=== PATIENT | female | born 1995 | race African-American/Black ===

== ENCOUNTER 2018-12-19 09:59 | Outpatient (CLI) | payer OTHER ==
[~2018-12-19] VITALS: Ht 162.6 cm; Wt 77.7 kg
--- NOTE | 2018-12-19 10:10 | NUR ---
Pt here from ER with c/o contractions every 10 minutes and waking up this AM with nausea, vomiting and diarrhea. Pt denies any other symptoms. 34.5 weeks gestation, G1. SVE: tight 1cm/70/high. Pt denies any vaginal bleeding or leaking of fluid. Assessment complete. Pt with sickle cell anemia, thalassemia, and PUPPs. Physician has prescribed topical cream and vistaril but pt hasn't started taken yet. Pt breathing through contractions every 2-3minutes. Inital maternal pulse 115bpm and temp is 99.2 orally. FHR 150-160bpm 1036:Dr Theodore called to updated. On his way now, will notify when he gets here. Order to start IV and LR bolus at this time.
[2018-12-19 10:20] VITALS: BP 109/60; PULSE 115; TEMP 99.2
[2018-12-19] MEDS ORDERED: NATURAL IRON65 MG PO (10:26)
[2018-12-19] MEDS ORDERED: PRENATAL PO (10:26)
[2018-12-19 10:45] VITALS: BP 98/56; PULSE 105
--- NOTE | 2018-12-19 11:05 | NUR ---
Dr Theodore updated on pt status. Order for Zofran 4mg IV now and may run LR at 125ml/hr. Pt wretching/dry heaving at this time, no emesis noted. Family at bedside, will continue to monitor.
[2018-12-19 11:15] VITALS: BP 97/48; PULSE 105
[2018-12-19 11:45] VITALS: BP 101/60; PULSE 96
--- NOTE | 2018-12-19 11:51 | NUR ---
Pt up to bathroom, voids. Denies any nausea at this time. 1205:Terb 0.25mg given SQ to left upper arm per physician's order. 1210:Dr Theodore here and at bedside, plan of care reviewed. SVE: 1/high. Orders to continue to monitor at this time.
[2018-12-19 12:45] VITALS: BP 107/58; PULSE 108
[2018-12-19 13:45] VITALS: BP 91/55; PULSE 110
--- NOTE | 2018-12-19 13:45 | NUR ---
Pt states feeling much better, states contractions have decreased. Contractions eveyr 15-20 minutes, palpate mild. Dr Theodore here, reviews FHR monitor strip. Orders to DC home. IV removed. DC instructions given, pt verbalizes understanding. Will call [facility] Friday to scheduled appointment. 1415:Pt to personal vehicle.
== END 2018-12-19 14:15 | disposition home or self-care (01) ==
LOC: LDRO 09:59 → LDR 10:00 → LDRO 14:15
DX: O62.9 Abnormality of forces of labor, unspecified (principal); Z3A.34 34 weeks gestation of pregnancy
CPT/HCPCS: OP; J2405; J3105; J7120

== ENCOUNTER 2019-01-10 10:32 | Outpatient (CLI) | payer OTHER ==
[~2019-01-10] VITALS: Ht 162.6 cm; Wt 79.5 kg
[~2019-01-10 10:32] MED LIST: NATURAL IRON65 MG PO; PRENATAL PO
--- NOTE | 2019-01-10 10:40 | NUR ---
Patient arrives ambulatory with spouse with complaints of spotting and cramping. Patient states "I don't notice anything when I wipe recently, but just wanted to get checked out". Patient reports normal movement and denies ROM. Changes into gown, EFM explained and placed. VSS. 1050- SVE by Nik Roman RN /3 and posterior. No bleeding noted on exam glove. Assessment completed and patient updated on plan of care. 1055- Dr. Theodore notified by Nik Roman RN. Reviewed patient history and complaint. Reviewed FHR strip and ctx pattern. SVE. Orders to monitor over one hour and recheck. DC home if unchanged and reactive FHR strip.
[2019-01-10 10:48] VITALS: BP 121/61; PULSE 81; TEMP 98.3
[2019-01-10 11:00] VITALS: BP 121/61; PULSE 81; TEMP 98.3
[2019-01-10 11:51] VITALS: BP 99/75; PULSE 75
--- NOTE | 2019-01-10 11:58 | NUR ---
Patient given discharge instructions. Reviewed labor precautions and kick counts. Denies questions. Leaves ambulatory.
== END 2019-01-10 12:00 | disposition home or self-care (01) ==
LOC: LDRO 10:32
DX: O26.853 Spotting complicating pregnancy, third trimester (principal); Z3A.37 37 weeks gestation of pregnancy

== ENCOUNTER → 2020-01-03 | Outpatient (CLI) | payer OTHER ==
[~2020-01-03] MED LIST changes: +IBU600 MG PO; +PERCOCET 325 MG1 TA2 PO
== END ==
LOC: ZCOL.LAB 15:01
DX: R19.7 Diarrhea, unspecified (principal); Z20.828 Contact with and (suspected) exposure to other viral communicable diseases

== ENCOUNTER 2020-07-04 20:31 | Outpatient (CLI) | payer MEDICAID ==
[~2020-07-04] VITALS: Ht 165.1 cm; Wt 80.0 kg
--- NOTE | 2020-07-04 20:35 | NUR ---
G2L1. 37-6. Ambulatory to LDR 4 with spouse. Clean gown on. EFM and TOCO explained and applied. Pt state she has been having contractions the past couple of hours that were every 3 mins apart but pt states they feel like they have let up some. Denies leaking of fluids or vaginal bleeding. Pt reports movement when she was down in the care when they pulled up to hospital. VS and assessment completed. SVE /-3. Plan of care explained to pt and who verbalize their understanding. Call light within reach.
[2020-07-04 21:00] VITALS: BP 120/59; PULSE 83; TEMP 98.5
--- NOTE | 2020-07-04 22:06 | NUR ---
SVE unchanged. called and updated on pts status. See physican notification. 2215: Discharge instructions given to pt. Pt verbalizes her understanding and denies any questions at this time. Pt ambulatory off unit with spouse.
== END 2020-07-04 22:15 | disposition home or self-care (01) ==
LOC: LDR 20:31 → LDRO 20:31 → LDR 21:29 → LDRO 22:15
DX: O62.9 Abnormality of forces of labor, unspecified (principal); Z3A.37 37 weeks gestation of pregnancy
CPT/HCPCS: OP

== ENCOUNTER → 2020-07-07 | Outpatient (CLI) | payer MEDICAID | LOC: ZCOL.LAB 08:00 | DX: Z20.828 Contact with and (suspected) exposure to other viral communicable diseases (principal) ==

== ENCOUNTER 2020-07-12 07:03 | Inpatient (IN) | payer MEDICAID ==
[~2020-07-12] VITALS: Ht 165.1 cm; Wt 80.9 kg
[2020-07-12] VITALS (28 sets, daily range): BP systolic 89–152; BP diastolic 51–89; PULSE 73–104; TEMP 98.2–98.4
--- NOTE | 2020-07-12 07:03 | NUR ---
0703-G2L1 [address] Barrios ambulatory to LR 5 for scheduled induction of labor. Assisted into gown and onto EFM. VSS, See flow record. FHR reactive. IV to left forearm, blood collected and sent to lab per protocol. IVF infusing see EMAR. Patient reports "feeling faint" following IV start, cool washcloth to forehead and fan turned on. Patient reports "I feel much better." Consents reviewed and sigend. Assessment complete. 0815-Dr. Barrios to unit. Reviews FHR monitor. In to see patient and discuss plan of care. 0818-SVE by -/-2, AROM clear fluid. Chelsy care provided. Updated on plan of care.
[2020-07-12 08:05] LABS: BASO % 0.3 % (0.0-2.0); EOS % 0.3 % (0-4.0); GRAN # 7.7 (1.4-6.5); GRAN % 69.8 % (42.2-75.2); LYMPH # 2.4 (1.2-3.4); LYMPH % 22.1 % (20.0-51.0); MEAN CELL VOLUME 75 fl (80.0-100.0); MEAN CORPUSCULAR HGB CONC 34 g/dl (33.0-37.0); MEAN PLATELET VOLUME 12.4 fl (7.4-10.4); MONO # 0.7 (0.1-0.6); MONO % 6.6 % (1.7-9.3); PLATELET COUNT 206 K/mm3 (130-400); RED BLOOD COUNT 3.82 M/mm3 (4.10-5.30); REDCELL DISTRIBUTION WIDTH-CV 16.4 % (11.5-14.5)
[2020-07-12 08:07] LABS: HEMOGLOBIN 9.7 g/dl (12.5-16.0); MEAN CORPUSCULAR HEMOGLOBIN 25 pg (27.0-31.0)
[2020-07-12 08:08] LABS: HEMATOCRIT 28.6 % (37.0-47.0)
--- NOTE | 2020-07-12 09:00 | NUR ---
0900-PAUL Hampton on unit, Patient sitting upright for epidural placement. Difficulty maintaining continuous tracing with EFM due to positioning. IVF bolus infusing. 09-Test dose administered by PAUL Hampton. Patient tolerated procedure well. VSS, Updated on plan of care and safety.
--- NOTE | 2020-07-12 09:42 | NUR ---
0942-Maternal BP 89/51, asymptomatic of low BP. 10mg IV ephedrine given per protocol. PAUL Hampton at bedside encouarging patient to use epidural [employer] due to left sided sharp pain with contractions following epidural placement. 1000-Maternal PB 101/55. FHR remains reactive category I. Sow to DD, clear dark yellow urine return. SVE 5-6/90/-2. Chelsy care provided. 1015-Patient reports pain with contraction improved and only describes "pressure" with contraction.
--- NOTE | 2020-07-12 10:55 | NUR ---
1055-Patient WR with peanut ball. SVE /-1, Reports some breakthrough pain. Encouarged patient to use [employer] button. 1130-Patient reports increased pressure despite [employer] button use. PAUL Hampton requested to room for dosing, see anesthesia record. 1142-SVE 8-/-1, Repositioned sitting upright in bed. Updated MD. 1157-Patient "Im feeling pushy!" SVE /+1, MD requested for delivery. 1203- Roles to unit. 1209-Patient begins pushing with MD at bedsdie. Moves vertex well. 1211-Spontaneous delivery of head immediately followed by body. Viable female to mothers abdomen. Cord clamped x2 and cut by FOB. Care of infant assumed by LEXUS Terry Apgars 89. Spontaneous delivery of intact placenta by MD. Fundal massage firm, lochia WNL. Pitocin bolus per MD orders and protocol. 2nd degree perineal lac repaired by MD. Chelsy care provided. Patient educated on plan of care and safety. 1500-Patient ambulatory to bathroom, unable to void at this time. Chelsy care provided. Ambulates with steady gait to room 208. Oriented to room and plan of care. Instructed to call with next void attempt.
[2020-07-13] VITALS: BP 116/66; PULSE 88; TEMP 98.4
[2020-07-13 05:40] VITALS: BP 105/53; PULSE 76; TEMP 98.2
[2020-07-13 06:41] LABS: HEMATOCRIT 25.8 % (37.0-47.0); HEMOGLOBIN 8.6 g/dl (12.5-16.0)
[2020-07-13 07:38] VITALS: BP 97/54; PULSE 67; TEMP 98.4
[2020-07-13] MEDS ORDERED: IBU600 MG PO (08:54)
--- NOTE | 2020-07-13 09:46 | NUR ---
Initial visit; Parents thanked Conductor Pullman for offering congratulations and [employer]s bleroxane for the of their daughter. Conductor Pullman thanked family for choosing [facility].
[2020-07-13 11:20] VITALS: BP 105/58; PULSE 84; TEMP 98.1
[2020-07-13 17:01] VITALS: BP 112/58; PULSE 77; TEMP 98.2
[2020-07-13 19:30] VITALS: BP 100/50; PULSE 75; TEMP 97.9
[2020-07-14 08:47] VITALS: BP 113/59; PULSE 81; TEMP 98.9
== END 2020-07-14 16:08 | disposition home or self-care (01) | DRG 807 ==
LOC: OB 07:03 → LDR 07:03 → OB 10:03
PROVIDERS: ADMIT Obstetrics & Gynecology
PROC: 10E0XZZ Delivery of Products of Conception, External Approach (ICD-10-PCS; principal; 2020-07-12)
PROC: 0KQM0ZZ Repair Perineum Muscle, Open Approach (ICD-10-PCS; 2020-07-12)
PROC: 10907ZC Drainage of Amniotic Fluid, Therapeutic from Products of Conception, Via Natural or Artificial Opening (ICD-10-PCS; 2020-07-12)
PROC: 3E033VJ Introduction of Other Hormone into Peripheral Vein, Percutaneous Approach (ICD-10-PCS; 2020-07-12)
DX: O99.02 Anemia complicating childbirth (principal); Z37.0 Single live birth; D64.9 Anemia, unspecified; O70.1 Second degree perineal laceration during delivery; D56.9 Thalassemia, unspecified; Z3A.39 39 weeks gestation of pregnancy
CPT/HCPCS: J2590; J7120

== ENCOUNTER 2022-12-05 20:11 | Outpatient (CLI) | payer MEDICAID ==
[~2022-12-05] VITALS: Ht 162.6 cm; Wt 88.6 kg
--- NOTE | 2022-12-05 20:25 | NUR ---
G3L2 at 38 weeks and 6 days arrives to unit with complaint of frequent contractions earlier this afternoon but have now started to space out. Pt states she had a stressful day and probably exerted herself too much. Pt denies LOF or vaginal bleeding. Reports good movement. Pt has had 2 deliveries of macrosomal infants. Pt oriented to room, call light within reach, bed in low and locked position. US and toco explained and applied. Vitals obtained. Admission assessment started. SVE 2/75/-3 and ballotable, membranes intact.
[2022-12-05 20:45] VITALS: BP 113/57; PULSE 105; TEMP 98.3
[2022-12-05] MEDS ORDERED: LR 1,000 ML IV PRN (21:00)
[2022-12-05 21:15] VITALS: BP 93/55; PULSE 94
[2022-12-05 21:55] VITALS: BP 94/51; PULSE 87
--- NOTE | 2022-12-05 22:00 | NUR ---
SVE unchanged over 1 hour. Pt states contractions have started to space out and feel less intense. 2210 - Discharge instructions reviewed and signed. Return precautions explained, pt verbalized understanding. Pt seen ambulating off unit with spouse.
[2022-12-12] MEDS ORDERED: ROXICODONE 55 MG/TAB PO (07:42)
[2022-12-12] MEDS ORDERED: MOTRIN 600600 MG/TAB PO (07:42)
[2023-03-01] MEDS ORDERED: PROTONIX 40MG T40 MG PO (20:50)
== END 2022-12-05 22:10 | disposition home or self-care (01) ==
LOC: LDRO 20:11 → LDR 20:59 → LDRO 22:10 → LDR 22:10
DX: O47.1 False labor at or after 37 completed weeks of gestation (principal); Z3A.38 38 weeks gestation of pregnancy
CPT/HCPCS: OP

== ENCOUNTER → 2023-03-26 | Outpatient (CLI) | payer MEDICAID ==
[~2023-03-26] MED LIST changes: +MOTRIN 600600 MG/TAB PO; +PROTONIX 40MG T40 MG PO; +ROXICODONE 55 MG/TAB PO
== END ==
LOC: COL.RAD 08:37
DX: K80.20 Calculus of gallbladder without cholecystitis without obstruction (principal)